=== PATIENT | female | born 1995 | race Caucasian/White ===

== ENCOUNTER 2020-04-29 12:47 | Observation (INO) | payer MEDICAID ==
[~2020-04-29] VITALS: Ht 154.9 cm; Wt 55.8 kg
[2020-04-29] MEDS ORDERED: PRETAB PO (13:15)
== END 2020-04-29 13:52 | disposition home or self-care (01) ==
LOC: MLD 12:47
PROVIDERS: ADMIT Obstetrics & Gynecology; ATTEND Obstetrics & Gynecology
DX: O26.893 Other specified pregnancy related conditions, third trimester (principal); R10.9 Unspecified abdominal pain; M54.9 Dorsalgia, unspecified; Z3A.39 39 weeks gestation of pregnancy
CPT/HCPCS: 87653; G0378; 81000